=== PATIENT | female | born 1980 | race Caucasian/White ===

== ENCOUNTER 2020-10-09 14:35 | Emergency (ER) | payer OTHER ==
[~2020-10-09] VITALS: Ht 172.7 cm; Wt 98.9 kg
[2020-10-09 14:39] VITALS: BP 125/96
--- NOTE | 2020-10-09 14:50 | NUR ---
PATIENT AMBULATED TO BED 11
--- NOTE | 2020-10-09 15:13 | NUR ---
40 Y/O F PATIENT PRESENTS TO ED WITH C/O SWEATING, SHAKING X 1 WEEK, RUNNY NOSE X 2 DAYS. DENIES N/V/D; SKIN IS PINK/WARM/DRY; AAOX4 WITH EVEN AND STEADY GAIT; LUNGS CLEAR BL; HR EVEN AND REGULAR; PT DENIES ANY FEVER, CP, SOB, OR COUGH AT THIS TIME; PATIENT STATES PAIN OF 0/10 AT THIS TIME; VSS; PATIENT POSITIONED FOR COMFORT; HOB ELEVATED; BEDRAILS UP X2; BED DOWN. ER MD MADE AWARE OF PT STATUS. PMH: FATTY LIVER NKA
--- NOTE | 2020-10-09 15:16 | NUR ---
SAID AT BEDSIDE EVALUATING PATIENT
[2020-10-09] MEDS ORDERED: NACL 0.9% 1,000 ML IV ONE ×2 (15:25→16:20)
[2020-10-09] MEDS ORDERED: ACETAMINOPHEN EXTRA STRENGTH 500 MG TAB PO ONE (15:25)
--- NOTE | 2020-10-09 15:37 | NUR ---
COVID , FLU SWAB SENT TO LAB.
--- NOTE | 2020-10-09 15:38 | NUR ---
XRAY AT BEDSIDE.
[2020-10-09] MEDS ORDERED: ALBU0.0912 INH (16:52)
[2020-10-09] MEDS ORDERED: BENZ-196 PO (16:52)
[2020-10-09] MEDS ORDERED: ACET-2619 PO (16:52)
--- NOTE | 2020-10-09 17:07 | NUR ---
UA sample collected, handed to CPT Travis
[2020-10-09 17:26] VITALS: BP 122/74
--- NOTE | 2020-10-09 17:26 | NUR ---
Patient discharged with v/s stable. Written and verbal after care instructions given and explained. Patient alert, oriented and verbalized understanding of instructions. Ambulatory with steady gait. All questions addressed prior to discharge. ID band removed. Patient advised to follow up with PMD. Rx of Albuterol, Benzonatate, Acetaminophen given. Patient educated on indication of medication including possible reaction and side effects. Opportunity to ask questions provided and answered.
== END 2020-10-09 17:26 | disposition home or self-care (01) ==
LOC: MED 14:35
DX: B34.9 Viral infection, unspecified (principal); Z20.822 Contact with and (suspected) exposure to COVID-19
CPT/HCPCS: 71045; 81002; 81025; 87426; 87804; 96360; 96361; 99285; J7030